=== PATIENT | male | born 2000 | race African-American/Black ===

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

== ENCOUNTER 2022-04-30 18:12 | Emergency (ER) | payer SELFPAY ==
--- NOTE | ~2022-04-30 | XR_ITS ---
EXAM: XR finger 3rd RT min 2V DATE: 04/30/2022 18:53 HISTORY: splinter under nail last week/red painful . COMPARISON: None available. FINDINGS: Normal mineralization. No fracture or dislocation. No lytic or blastic lesion. Joint space s and physes are maintained. No erosion or periosteal change. Soft tissues within normal limits. IMPRESSION: No acute osseous finding in the right third finger. Reviewed, dictated and finalized at location K.
[2022-04-30 18:29] VITALS: BP 128/52; PULSE 71; RESP 18; TEMP 36.6; O2SAT 100
--- NOTE | 2022-04-30 18:37 | ED.WOUNDLAC ---
HPI - Wound/Laceration General Chief Complaint: Wound/Laceration Stated Complaint: Injury Middle Finger Rt Hand Time Seen by Provider: 04/30/22 18:37 History of Present Illness HPI narrative: Nazario Saavedra is a 21 yo male with no PMH comes to [facility] with an infection in his right middle finger after pulling a splinter out of it last week. End of finger is white and tender; is not draining Related Data Allergies Allergy/AdvReac Type Severity Reaction Status Date / Time No Known Allergies Allergy Verified 04/30/22 18:18 Review of Systems Review of Systems: CONSTITUTIONAL: Denies fever, chills, sweats. EYES: Denies visual changes, redness, discharge. ENT: Denies rhinorrhea, congestion, sore throat, otalgia. CARDIOVASCULAR: Denies chest pain, palpitations, edema. RESPIRATORY: Denies dyspnea, wheezing, cough GASTROINTESTINAL: Denies abdominal pain, nausea, vomiting, diarrhea. GENITOURINARY: Denies dysuria, hematuria, abnormal discharge SKIN: Denies rash or itching. NEUROLOGIC: Denies numbness, or focal weakness. PSYCHIATRIC: Denies anxiety or depression. Right middle finger infection with white area of tip PMFSH Past Medical History Medical History ADD (attention deficit disorder) Hearing aid worn Comments At time of signature, I agree with nursing past medical, surgical, social and family history. There is no relevant family history pertinent to the presenting complaint. Exam Narrative: GENERAL: This is a well-nourished, well-developed patient, in mild distress. HEAD: normocephalic, atraumatic. EYES: PERRL. Sclera clear/white. Vision is grossly intact. EARS: External ears normal,. Hearing grossly intact. NOSE: External nose normal without nasal discharge, nares without redness, no rhinorrhea. THROAT: Mucous membranes moist, NECK: Neck supple, non-tender CARDIOVASCULAR: Regular rate and rhythm without murmurs, gallops, or rubs. RESPIRATORY: Clear to auscultation. Breath sounds equal bilaterally. No wheezes, rales, or rhonchi. GASTROINTESTINAL: Not done SKIN: warm, intact with skin of third middle finger on right is white and appears infected mildly tender NEURO: awake, alert, and oriented to person, place and time. There were no obvious focal neurologic abnormalities. Steady gait EXTREMITIES: Normal range of motion. BACK: Nontender without deformity Course Course Emergency Course: Patient here with finger that is swollen and mildly tender after removal of a splinter a week ago (R middle) Xray done-no osseous findings, normal mineralization, no fracture dislocation no lytic lesion Started on Keflex and Bactrim patient to take as directed and to wear finger splint and glove under work gloves if the finger continues to swell are the infection seems to spread he is to go to [facility] or [facility] to a hand doc in the ER Level of Care: Express Care Visit Vital Signs Vital signs: Vital Signs Temperature 97.8 F 04/30/22 18:29 Pulse Rate 71 04/30/22 18:29 Respiratory Rate 18 04/30/22 18:29 Blood Pressure 128/52 L 04/30/22 18:29 Pulse Oximetry 100 04/30/22 18:29 Oxygen Delivery Room Air 04/30/22 18:29 Temperature 97.8 F 04/30/22 18:29 Pulse Rate 71 04/30/22 18:29 Respiratory Rate 18 04/30/22 18:29 Blood Pressure 128/52 L 04/30/22 18:29 Pulse Oximetry 100 04/30/22 18:29 Oxygen Delivery Room Air 04/30/22 18:29 MDM - Wound/Laceration Differential Diagnosis Differential diagnosis: Likely abscess and other (felon versus cellulitis) Critical Care Time Critical Care Time Critical Care Time: No Discharge Plan Discharge Clinical Impression: Cellulitis of right finger Patient Disposition: Home, Self-Care Condition: Stable Instructions: Antibiotic Form, Cellulitis (ED) Additional Instructions: Patient is to take antibiotics as directed and monitor finger for further spread of infection; he is to use fi
== END 2022-04-30 19:30 | disposition home or self-care (01) ==
PROVIDERS: Emergency Provider Nurse Practitioner
DX: L03.011 Cellulitis of right finger (principal)
CPT/HCPCS: 29130; 73140; 99213; G0463